=== PATIENT | female | born 1940 | race Caucasian/White ===

== ENCOUNTER → 2016-09-14 | Outpatient (CLI) | payer OTHER, MEDICARE | LOC: FIMAGING 11:46 | PROVIDERS: ATTEND Internal Medicine | DX: Z12.31 Encounter for screening mammogram for malignant neoplasm of breast (principal); Z85.3 Personal history of malignant neoplasm of breast; Z86.000 Personal history of in-situ neoplasm of breast | CPT/HCPCS: G0202 ==

== ENCOUNTER 2016-10-26 11:04 | Inpatient (IN) | payer OTHER, MEDICARE ==
[2016-10-26 12:17] LABS: % IMMATURE GRANULYOCYTES 0.3 % (0.0-1.1); ABSOLUTE IMMATURE GRANULOCYTES 0.02 10^3/uL (0.00-0.10); ADD DIFF? NO; ADD MORPH? NO; ADD SCAN? NO; ATYPICAL LYMPHOCYTE FLAG 0 (0-99); FRAGMENT RBC FLAG 0 (0-99); HEMATOCRIT 42.3 % (38.0-47.0); HEMOGLOBIN 14.4 g/dL (12.6-16.3); LEFT SHIFT FLG 0 (0-99); LIPEMIA HEMOLYSIS FLAG 90 (0-99); MEAN CELL HEMOGLOBIN 33.4 pg (27.9-34.1); MEAN CELL VOLUME 98.1 fL (81.5-99.8); MEAN PLATELET VOLUME 9.5 fL (8.7-11.7); PLATELET CLUMPS FLAG 10 (0-99); PLATELET COUNT 175 10^3/uL (150-400); RED BLOOD CELL COUNT 4.31 10^6/uL (4.18-5.33); RED CELL DISTRIBUTION WIDTH 12.7 % (11.5-15.2)
[2016-10-26] MEDS ORDERED: HYDROmorphONE/DILAUDID 1 MG/ML SYR IVP ONE ×3 (12:28→13:46)
[2016-10-26 12:33] LABS: ANION GAP 14 mEq/L (8-16); CALCIUM 9.5 mg/dL (8.5-10.4); CARBON DIOXIDE 24 mEq/l (22-31); CHLORIDE 105 mEq/L (97-110); CREATININE 0.9 mg/dL (0.6-1.0); GLOMERULAR FILTRATION RATE > 60; GLUCOSE 105 mg/dL (70-100); POTASSIUM 3.8 mEq/L (3.5-5.2); SODIUM 143 mEq/L (134-144)
[2016-10-26] MEDS ORDERED: NS 1,000 ML IV ONE (13:01)
[2016-10-26] MEDS ORDERED: IOPAMIDOL (ISOVUE-300) 100 ML BTL ONE ×2 (13:15→16:54)
[2016-10-26] MEDS ORDERED: HYDROmorphONE/DILAUDID 1 MG/ML SYR ONE (13:41)
--- NOTE | 2016-10-26 14:19 | EDPHY ---
H & P Time Seen by Provider: 10/26/16 12:51 HPI/ROS: Chief complaint. Abdominal pain HPI. 76-year-old female with abdominal pain off and on for 1 month. She had a CT checkup at the end of August for pancreatic cancer that was apparently normal other than showing constipation. She now has severe mid low abdominal pain that she describes as stabbing. Vomiting last night. Some burning with urination. No fever. She has had similar symptoms previously. Denies chest discomfort or shortness of breath. The decreased urination. ROS Constitutional. no fever/chills, no weakness Eyes. no problems with vision ENT. no sore throat, no nasal drainage Cardiovascular. no chest pain Respiratory. no shortness of breath, no cough Abdominal. Abdominal pain with vomiting . Decreased urination MS. no calf pain/swelling, no neck/back pain, no joint pain Skin. no rash Lymph. no swollen glands Neuro. no headache, no dizziness, no difficulty walking or with speech Past Medical/Surgical History: Past medical history is significant for GERD pancreatic cancer Social History: , nonsmoker, no alcohol Smoking Status: Never smoked Physical Exam: General Appearance: Alert pleasant well-developed female moderate to severe distress vital signs are stable Eyes: Pupils equal and round no pallor or injection. ENT, Mouth: Mucous membranes are moist. Respiratory: There are no retractions, lungs are clear to auscultation. Cardiovascular: Regular rate and rhythm. Gastrointestinal: Abdomen is soft with suprapubic and low abdominal tenderness. Right equals left. No flank tenderness. Normal bowel sounds. No masses. Neurological: Awake and alert, sensory and motor exams grossly normal. Skin: Warm and dry, no rashes. Musculoskeletal: Neck is supple nontender. Extremities symmetrical, full range of motion. Psychiatric: Patient is oriented X 3, there is no agitation. Constitutional: Initial Vital Signs Temperature (C) 36.7 C 10/26/16 11:10 Heart Rate 72 10/26/16 11:10 Respiratory Rate 18 10/26/16 11:10 Blood Pressure 140/69 H 10/26/16 11:10 O2 Sat (%) 97 10/26/16 11:10 O2 Delivery Mode Room Air O2 (L/minute) 2 Allergies/Adverse Reactions: No Known Allergies Allergy (Verified 10/26/16 11:18) Home Medications: Medication Instructions Recorded Levothyroxine [Synthroid 100 mcg 100 mcg PO DAILY06 01/23/12 (RX)] Acetamn/Diphenhydramine 500/25 1 each PO HS PRN 10/26/16 [Tylenol PM (*)] Herbals/Supplements -Info Only 1 ea PO DAILY 10/26/16 Lipase/Protease/Amylase [Creon 12 1 - 2 cap PO TIDMEAL 10/26/16 (*)] Medical Decision Making - Diagnostics Imaging Results: Imaging Impressions Abdomen CT 10/26/16 13:01 Impression: 1. 6.4 mm calculus in the ureterovesical junction with moderate to severe hydroureter and hydronephrosis. Visualized clip and rupture along the course of the collecting system as there is significant fluid around the ureter, ureteropelvic junction, anterior to the iliopsoas, small amount of free fluid in the pelvis, and significant perinephric stranding. 2. Postsurgical changes of Whipple with no evidence for recurrent mass or lymphadenopathy. 3. Nonobstructive right nephrolithiasis. 4. Status post cholecystectomy with pneumobilia. 5. Other chronic findings as above. Results called and discussed with Dr. Rodrigo Myers on 10/26/[address] abdomen and pelvis reviewed by me and discussed with Dr. Saini shows a 6.4 mm stone at the left UVJ. Moderate to severe hydronephrosis and perinephric stand stranding is present. Free fluid in the pelvis Procedures: IV normal saline. Multiple doses of Dilaudid are given for pain that recurs. ED Course/Re-evaluation: Re-evaluation 2:20 p.m.--patient is stable but requires further narcotics for pain control. The patient, her , and I discussed imaging study results, laboratory evaluation, treatment plan including recommendation for admission. They expressed understanding and agreed I consulted and discussed case with Dr. dyan chávez, hospitalist, who agrees to the admission I consulted and discussed case with Dr. Sanchez, urology, who will see the patient in the hospital Differential Diagnosis: I considered small-bowel obstruction, diverticulitis, urinary tract infection including pyelonephritis. The patient has left-sided kidney stone with severe hydronephrosis - Data Points Laboratory Results: Laboratory Results 10/26/16 12:10 10/26/16 12:10 10/26/16 10/26/16 10/26/16 14:02 12:10 12:10 WBC 6.77 10^3/uL 10^3/uL (3.80-9.50) RBC 4.31 10^6/uL 10^6/uL (4.18-5.33) Hgb 14.4 g/dL g/dL (12.6-16.3) Hct 42.3 % % (38.0-47.0) MCV 98.1 fL fL (81.5-99.8) MCH 33.4 pg pg (27.9-34.1) MCHC 34.0 g/dL g/dL (32.4-36.7) RDW 12.7 % % (11.5-15.2) Plt Count 175 10^3/uL 10^3/uL (150-400) MPV 9.5 fL fL (8.7-11.7) Neut % (Auto) 82.1 % H % (39.3-74.2) Lymph % (Auto) 13.4 % L % (15.0-45.0) [place] % (Auto) 3.8 % L % (4.5-13.0) Eos % (Auto) 0.0 % L % (0.6-7.6) Baso % (Auto) 0.4 % % (0.3-1.7) Nucleat RBC Rel Count 0.0 % % (0.0-0.2) Absolute Neuts (auto) 5.55 10^3/uL 10^3/uL (1.70-6.50) Absolute Lymphs (auto) 0.91 10^3/uL L 10^3/uL (1.00-3.00) Absolute Monos (auto) 0.26 10^3/uL L 10^3/uL (0.30-0.80) Absolute Eos (auto) 0.00 10^3/uL L 10^3/uL (0.03-0.40) Absolute Basos (auto) 0.03 10^3/uL 10^3/uL (0.02-0.10) Absolute Nucleated RBC 0.00 10^3/uL 10^3/uL (0-0.01) Immature Gran % 0.3 % % (0.0-1.1) Immature Gran # 0.02 10^3/uL 10^3/uL (0.00-0.10) Sodium 143 mEq/L mEq/L (134-144) Potassium 3.8 mEq/L mEq/L (3.5-5.2) Chloride 105 mEq/L mEq/L (97-110) Carbon Dioxide 24 mEq/l mEq/l (22-31) Anion Gap 14 mEq/L mEq/L (8-16) BUN 15 mg/dL mg/dL (7-23) Creatinine 0.9 mg/dL mg/dL (0.6-1.0) Estimated GFR > 60 Glucose 105 mg/dL H mg/dL (70-100) Calcium 9.5 mg/dL mg/dL (8.5-10.4) Urine Color PALE YELLOW Urine Appearance CLEAR Urine pH 7.0 (5.0-7.5) Ur Specific [place] 1.016 (1.002-1.030) Urine Protein NEGATIVE (NEGATIVE) Urine Ketones 1+ H (NEGATIVE) Urine Blood 1+ H (NEGATIVE) Urine Nitrate NEGATIVE (NEGATIVE) Urine Bilirubin NEGATIVE (NEGATIVE) Urine Urobilinogen NEGATIVE EU EU (0.2-1.0) Ur Leukocyte Esterase NEGATIVE (NEGATIVE) Urine RBC 10-15 /hpf H /hpf (0-3) Urine WBC 1-3 /hpf /hpf (0-3) Ur Epithelial Cells NONE SEEN /lpf /lpf (NONE-1+) Calcium Oxalate Crystal PRESENT /hpf /hpf (NONE-1+) Urine Mucus TRACE /lpf /lpf (NONE-1+) Urine Glucose NEGATIVE (NEGATIVE) Medications Given: Discontinued Medications Hydromorphone HCl (Dilaudid) 0.5 mg IVP EDNOW ONE Stop: 10/26/16 12:29 Last Admin: 10/26/16 12:34 Dose: 0.5 mg Hydromorphone HCl (Dilaudid) 0.25 mg IVP EDNOW ONE Stop: 10/26/16 13:02 Last Admin: 10/26/16 13:10 Dose: 0.25 mg Hydromorphone HCl (Dilaudid) 0.5 mg IVP EDNOW ONE Stop: 10/26/16 13:47 Last Admin: 10/26/16 13:47 Dose: 0.5 mg Sodium Chloride (Ns) 1,000 mls @ 0 mls/hr IV ONCE ONE; Wide Open PRN Reason: Protocol Stop: 10/26/16 13:02 Last Admin: 10/26/16 13:04 Dose: 1,000 mls Ketorolac Tromethamine (Toradol) 30 mg IVP EDNOW ONE Stop: 10/26/16 14:30 Last Admin: 10/26/16 14:51 Dose: 30 mg Departure - Departure Disposition: [facility] Acute Clinical Impression: Renal colic on left side, Ureterolithiasis Condition: Fair
[2016-10-26 14:28] LABS: COLOR PALE YELLOW; LEUKOCYTE ESTERASE,URINE NEGATIVE (NEGATIVE); NITRITE,URINE NEGATIVE (NEGATIVE)
[2016-10-26] MEDS ORDERED: KETOROLAC 30 MG/1 ML SDV IVP ONE (14:29)
[2016-10-26 14:39] LABS: MUCUS TRACE /lpf (NONE-1+)
[2016-10-26] MEDS ORDERED: ONDANSETRON DISINTEGRATING 4 MG TAB PO PRN (15:11)
[2016-10-26] MEDS ORDERED: ONDANSETRON 4 MG/2 ML VIAL IVP PRN (15:11)
[2016-10-26] MEDS ORDERED: ACETAMINOPHEN 325 MG TAB PO PRN (15:11)
[2016-10-26] MEDS ORDERED: NALOXONE HCL 0.4 MG/ML INJ IVP PRN ×2 (15:14)
[2016-10-26] MEDS ORDERED: HYDROmorphONE/DILAUDID 6 MG/30 ML PCA IV PRN (15:14)
[2016-10-26] MEDS ORDERED: NS 1,000 ML IV SCH (15:15)
--- NOTE | 2016-10-26 15:37 | GHP ---
[f rep st] HISTORY AND PHYSICAL DATE OF ADMISSION: 10/26/2016 CHIEF COMPLAINT: Abdominal flank pain. HISTORY OF PRESENT ILLNESS: This is a 76-year-old female, who presents with significant mid-lower a bdominal pain that is stabbing. She had some vomiting as well. She has had some intermittent pain for the last month. She has a history of pancreatic cancer and is status post Whipple. She denies any fevers or chills. She has not had any previous kidney stones. REVIEW OF SYSTEMS: A 10-point review of systems was obtained, other than stated above is negative. PAST MEDICAL HISTORY: 1. Pancreatic cancer, status post Whipple. 2. Hypothyroidism. 3. History of breast cancer, status post bilateral mastectomy. 4. History of cholecystectomy. SOCIAL HISTORY: No smoking or alcohol. FAMILY HISTORY: Both parents are . PHYSICAL EXAM: VITAL SIGNS: Afebrile, blood pressure is 148/72, heart rate 80, oxygen saturation 9 4% on room air. GENERAL: The patient is well-developed, no apparent distress. HEENT: Nonicteric sclerae. Moist mucous membranes. NECK: Supple. No thyromegaly. LUNGS: Good effort. Clear to a uscultation bilaterally. CARDIOVASCULAR: Regular rate and rhythm. No murmurs, gallops. ABDOMEN: Positive bowel sounds. Soft. Some mild lower tenderness. No rebound or guarding. EXTREMITIES: No clubbing, cyanosis, or edema. SKIN: Without rash or intact. NEUROLOGIC: Alert and oriented x3 . Moving all 4 extremities equally. PSYCH: Normal mood and affect. LABORATORY DATA: Chemistry is normal. CBC is normal. CT scan shows a 6.4 mm calculus in the UV ju nction, with [id number] hydroureter and hydronephrosis, and some rupture in course of the co llecting duct around UV junction, and perinephric stranding. ASSESSMENT: This is a 76-year-old female, presenting with left-sided nephrolithiasis, with obstruct zo kidney. PLAN: Patient will be admitted. We will give IV fluids. Pain control with a STRATEGIC SOURCING CONSULTANT. Urology has bee n called by the emergency room physician. /[id number]/MODL
[2016-10-26] MEDS ORDERED: FLUMAZENIL 0.5 MG/5 ML MDV IVP ONE (17:05)
[2016-10-26] MEDS ORDERED: KETOROLAC 30 MG/1 ML SDV ONE (17:05)
[2016-10-26] MEDS ORDERED: fentaNYL 100 MCG/2 ML INJ ONE (17:05)
[2016-10-26] MEDS ORDERED: MIDAZOLAM 2 MG/2 ML VIAL ONE (17:06)
--- NOTE | 2016-10-26 17:55 | SOAPPROG ---
ANJALI Progress Note Assessment/Plan: Assessment: Hydronephrosis concurrent with and due to ureteral stricture--left Acute on CAT scan and plan for PCN Right nephrolithiasis Acute on CAT and will need rx later Ureterolithiasis Acute on CAT scan and rx after PCN placed and ureter / kidney inflammation resolved Plan: Left PCN, follow and care planning after kidney drained 10/26/16 17:53 Subjective: abdominal pain Objective: Vital Signs Temp Pulse Resp BP Pulse Ox 36.8 C 82 18 112/65 94 10/26/16 15:45 10/26/16 15:45 10/26/16 15:45 10/26/16 15:45 10/26/16 15:45 10/25/16 10/26/16 10/27/16 05:59 05:59 05:59 Intake Total 1000 Balance 1000 Physical Exam - Physical Exam General Appearance: alert (reviewed CAT scan and addressed admitting problem. will follow in hospital and consider a rx plan for ureterolithiasis and nephrolithiasis) ICD10 Worksheet Patient Problems: Problems Problem Status Onset Hydronephrosis concurrent with and due to ureteral stricture Acute Right nephrolithiasis Acute Ureterolithiasis Acute - ICD10 Problem Qualifiers (1) Hydronephrosis concurrent with and due to ureteral stricture (2) Right nephrolithiasis (3) Ureterolithiasis
--- NOTE | 2016-10-26 18:09 | POSTOPPROG ---
Post Op Note Date of Operation: 10/26/16 Surgeon: Charan Crooks Anesthesia: IV Sedation Pre-op Diagnosis: Left ureteral stone Post-op Diagnosis: Same Indication: Left ureteral obstruction with extravasation Procedure: Percutaneous left nephrostomy Findings: Tube in good position Inf/Abcess present in the surg proc area at time of surgery?: No EBL: Minimal Drains: Nephrostomy (10 F pigtail)
[2016-10-26] MEDS: CREON 12 CAP PO SCH (20:28)
[2016-10-27] MEDS: LEVOTHYROXINE 100 MCG TAB PO SCH (04:03)
[2016-10-27 05:31] LABS: % IMMATURE GRANULYOCYTES 0.2 % (0.0-1.1); ABSOLUTE IMMATURE GRANULOCYTES 0.01 10^3/uL (0.00-0.10); ADD DIFF? NO; ADD MORPH? NO; ADD SCAN? NO; ATYPICAL LYMPHOCYTE FLAG 10 (0-99); FRAGMENT RBC FLAG 0 (0-99); HEMATOCRIT 35.2 % (38.0-47.0); HEMOGLOBIN 11.8 g/dL (12.6-16.3); LEFT SHIFT FLG 0 (0-99); LIPEMIA HEMOLYSIS FLAG 80 (0-99); MEAN CELL HEMOGLOBIN 33.1 pg (27.9-34.1); MEAN CELL HEMOGLOBIN CONCENTR. 33.5 g/dL (32.4-36.7); MEAN CELL VOLUME 98.6 fL (81.5-99.8); PLATELET CLUMPS FLAG 0 (0-99); PLATELET COUNT 137 10^3/uL (150-400); RED BLOOD CELL COUNT 3.57 10^6/uL (4.18-5.33); RED CELL DISTRIBUTION WIDTH 12.7 % (11.5-15.2)
[2016-10-27 06:01] LABS: ANION GAP 9 mEq/L (8-16); CALCIUM 8.7 mg/dL (8.5-10.4); CARBON DIOXIDE 22 mEq/l (22-31); CHLORIDE 110 mEq/L (97-110); CREATININE 0.6 mg/dL (0.6-1.0); GLOMERULAR FILTRATION RATE > 60; GLUCOSE 92 mg/dL (70-100); POTASSIUM 3.7 mEq/L (3.5-5.2); SODIUM 141 mEq/L (134-144)
[2016-10-27] MEDS: CREON 12 CAP PO SCH ×3 (08:11→17:17)
--- NOTE | 2016-10-27 10:01 | HOSPPROG ---
Hospitalist Progress Note Assessment/Plan: * nephrolithiasis with obstruction and ureteral stricture * Nephrostomy tube in place * Treatment per Urology * history of pancreatic cancer Subjective: Not much pain Objective: Vital Signs Temp Pulse Resp BP Pulse Ox 36.9 C 62 16 99/60 L 95 10/27/16 09:32 10/27/16 09:32 10/27/16 09:32 10/27/16 09:32 10/27/16 09:32 Microbiology 10/26/16 18:00 Gram Stain - Final Other - Syringe Laboratory Results 10/27/16 04:22 10/27/16 04:22 10/26/16 10/27/16 10/28/16 05:59 05:59 05:59 Intake Total 2843 Output Total 200 Balance 2643 - Physical Exam Constitutional: no apparent distress, appears nourished, not in pain Eyes: anicteric sclera, EOMI Ears, Nose, Mouth, Throat: moist mucous membranes, hearing normal Cardiovascular: regular rate and rhythym Respiratory: no respiratory distress, no rales or rhonchi, clear to auscultation Gastrointestinal: normoactive bowel sounds, soft, non-tender abdomen, no palpable masses Genitourinary: obrien in urethra, other (Left nephrostomy) Skin: warm Neurologic: AAOx3 Psychiatric: interacting appropriately, not anxious, not encephalopathic, thought process linear ICD10 Worksheet Patient Problems: Problems Problem Status Onset Hydronephrosis concurrent with and due to ureteral stricture Acute Renal colic on left side Acute Right nephrolithiasis Acute Ureterolithiasis Acute
--- NOTE | 2016-10-27 17:31 | SOAPPROG ---
SOAP Progress Note Assessment/Plan: Assessment: Hydronephrosis concurrent with and due to ureteral stricture--left Acute on CAT scan and PCN placed HD 1 and tolerated well Right nephrolithiasis Acute on CAT and will need rx later Ureterolithiasis Acute on CAT scan and ureteroscopy planned Plan: Left PCN, Plan ureteroscopy in AM (Saturday) 10/27/16 18:06 Subjective: no pain and desires rx of stone, did not know about right nephrolithiasis Objective: Vital Signs Temp Pulse Resp BP Pulse Ox 36.3 C 74 16 116/81 H 95 10/27/16 15:26 10/27/16 15:26 10/27/16 15:26 10/27/16 15:26 10/27/16 15:26 Microbiology 10/26/16 18:00 Gram Stain - Final Other - Syringe Laboratory Results 10/27/16 04:22 10/27/16 04:22 10/26/16 10/27/16 10/28/16 05:59 05:59 05:59 Intake Total 2843 Output Total 200 200 Balance 2643 -200 - Time Spent With Patient Time Spent With Patient: 60min Physical Exam - Physical Exam General Appearance: alert Respiratory: No respiratory distress Cardiac/Chest: regular rate, rhythm Abdomen: soft Back: Other (neph tube draining well), No CVA tenderness Skin: warm/dry Extremities: normal range of motion, No calf tenderness Neuro/Psych: alert, oriented x 3 ICD10 Worksheet Patient Problems: Problems Problem Status Onset Hydronephrosis concurrent with and due to ureteral stricture Acute Renal colic on left side Acute Right nephrolithiasis Acute Ureterolithiasis Acute - ICD10 Problem Qualifiers (1) Hydronephrosis concurrent with and due to ureteral stricture (2) Right nephrolithiasis (3) Ureterolithiasis
--- NOTE | 2016-10-27 18:08 | PDHPUP ---
History & Physical Update H&P update statement: This history and physical update is based on an assessment of the patient which was completed after admission or registration (within 24 hours), but prior to the surgery/procedure. H&P update: H&P reviewed & patient examined, no change in patient's condition since H&P completed
[2016-10-27] MEDS ORDERED: CALCIUM CARBONATE 500 MG CHEWABLE TAB PO PRN (22:39)
[2016-10-27] MEDS ORDERED: ZOLPIDEM TARTRATE 5 MG TAB PO ONE (22:54)
[2016-10-28] MEDS: LEVOTHYROXINE 100 MCG TAB PO SCH (05:12)
[2016-10-28] MEDS ORDERED: ceFAZolin 2 GM/DEXTROSE 100 ML IV ONE (07:00)
[2016-10-28] MEDS ORDERED: IOPAMIDOL (ISOVUE-M 300) 15 ML VIAL ONE (07:31)
[2016-10-28] MEDS ORDERED: LIDOCAINE 2% JELLY 20 ML (UROJECT) ONE (07:31)
[2016-10-28] MEDS: CREON 12 CAP PO SCH ×2 (07:39→12:41)
[2016-10-28] MEDS ORDERED: LR 1,000 ML IV ONE (07:47)
[2016-10-28] MEDS ORDERED: MIDAZOLAM 2 MG/2 ML VIAL IVP ONE (08:06)
--- NOTE | 2016-10-28 08:08 | PDANEPAE ---
ANE Past Medical History - Cardiovascular History Hx Hypertension: No Hx Arrhythmias: No Hx Chest Pain: No Hx Coronary Artery / Peripheral Vascular Disease: No Hx CHF / Valvular Disease: No Hx Palpitations: No Cardiovascular History Comment: HAS HAD WORKUPS IN PAST FOR CHEST PAIN - NONE RECENT - Pulmonary History Hx COPD: No Hx Asthma/Reactive Airway Disease: No Hx Recent Upper Respiratory Infection: No Hx Oxygen in Use at Home: No Hx Sleep Apnea: No Sleep Apnea Screening Result - Last Documented: Negative - Neurologic History Hx Cerebrovascular Accident: No Hx Seizures: No Hx Dementia: No - Endocrine History Hx Diabetes: Yes Endocrine History Comment: HYPOTHYROID - HASHIMOTOS - Renal History Hx Renal Disorders: No - Liver History Hx Hepatic Disorders: Yes Hepatic History Comment: CHOLECYSTECTOMY - Neurological & Psychiatric Hx Hx Neurological and Psychiatric Disorders: No - Cancer History Hx Cancer: Yes Cancer History Comment: BREAST CA NADINE. SKIN CA - Congenital Disorder History Hx Congenital Disorders: No - GI History Hx Gastrointestinal Disorders: Yes Gastrointestinal History Comment: GERD. ABD PAIN CURRENTLY - Other Health History Other Health History: NEG - Chronic Pain History Chronic Pain: No - Surgical History Prior Surgeries: CHOLECYSTECTOMY. LUMPECTOMY NADINE. INCOMP CERVIX ANE Patient History - Allergies Allergies/Adverse Reactions: No Known Allergies Allergy (Verified 10/26/16 11:18) - Home Medications Home Medications: Levothyroxine [Synthroid 100 mcg (RX)] 100 mcg PO DAILY06 01/23/12 [Last Taken 10/25/16] Acetamn/Diphenhydramine 500/25 [Tylenol PM (*)] 1 each PO HS PRN 10/26/16 [Last Taken Unknown] Herbals/Supplements -Info Only 1 ea PO DAILY 10/26/16 [Last Taken Unknown] Lipase/Protease/Amylase [Creon 12 (*)] 1 - 2 cap PO TIDMEAL 10/26/16 [Last Taken 10/25/16] - NPO status NPO Since - Liquids (Date): 10/28/16 NPO Since - Liquids (Time): 00:00 NPO Since - Solids (Date): 10/28/16 NPO Since - Solids (Time): 00:00 - Smoking Hx Smoking Status: Never smoked - Family Anes Hx Family Hx Anesthesia Complications: NEG ANE Labs/Vital Signs - Labs Result Diagrams: 10/27/16 04:22 10/27/16 04:22 - Vital Signs Blood Pressure: 126/67 Heart Rate: 77 Respiratory Rate: 18 O2 Sat (%): 94 Height: 161.29 cm Weight: 52.526 kg ANE Physical Exam - Airway Neck exam: FROM Mouth exam: normal dental/mouth exam - Pulmonary Pulmonary: no respiratory distress, no rales or rhonchi, clear to auscultation - Cardiovascular Cardiovascular: regular rate and rhythym - ASA Status ASA Status: III ANE Anesthesia Plan Anesthesia Plan: GA w LMA
[2016-10-28] MEDS ORDERED: MIDAZOLAM 2 MG/2 ML VIAL ONE (08:11)
[2016-10-28] MEDS ORDERED: fentaNYL 100 MCG/2 ML INJ ONE ×2 (08:12→09:25)
[2016-10-28] MEDS ORDERED: DEXAMETHASONE 4 MG/ML VIAL ONE (08:13)
[2016-10-28] MEDS ORDERED: ONDANSETRON 4 MG/2 ML VIAL ONE ×2 (08:13→09:32)
[2016-10-28] MEDS ORDERED: LIDOCAINE 2% 5 ML SDV ONE (08:13)
[2016-10-28] MEDS ORDERED: PROPOFOL 200 MG/20 ML VIAL ONE (08:13)
[2016-10-28] MEDS ORDERED: LIDOCAINE 2% JELLY 5 ML TUBE ONE (08:13)
[2016-10-28] MEDS ORDERED: PHENYLEPHRINE HCL 100 MCG/ML SYR ONE ×2 (08:27→08:54)
--- NOTE | 2016-10-28 08:29 | HOSPPROG ---
Hospitalist Progress Note Assessment/Plan: #Nephrolithiasis with obstruction and ureteral stricture: s/p nephrostomy tube -ureteroscopy today #h/o pancreatic cancer: stable Objective: Vital Signs Temp Pulse Resp BP Pulse Ox 36.9 C 77 18 126/67 H 94 10/28/16 07:24 10/28/16 08:08 10/28/16 08:08 10/28/16 08:08 10/28/16 08:08 Microbiology 10/26/16 18:00 Gram Stain - Final Other - Syringe Laboratory Results 10/27/16 04:22 10/27/16 04:22 10/27/16 10/28/16 10/29/16 05:59 05:59 05:59 Intake Total 2843 1015 Output Total 200 1425 Balance 2643 -410 ICD10 Worksheet Patient Problems: Problems Problem Status Onset Hydronephrosis concurrent with and due to ureteral stricture Acute Renal colic on left side Acute Right nephrolithiasis Acute Ureterolithiasis Acute
[2016-10-28] MEDS ORDERED: LABETALOL HCL 50 MG/10 ML SYR IVP PRN (09:06)
[2016-10-28] MEDS ORDERED: NALOXONE HCL 0.4 MG/ML INJ IVP PRN (09:06)
[2016-10-28] MEDS ORDERED: LR 500 ML IV PRN (09:06)
[2016-10-28] MEDS ORDERED: DEXAMETHASONE 4 MG/ML VIAL IVP PRN (09:06)
[2016-10-28] MEDS ORDERED: ONDANSETRON 4 MG/2 ML VIAL IVP PRN (09:06)
[2016-10-28] MEDS ORDERED: PROMETHAZINE HCL 25 MG/ML INJ IVP PRN (09:06)
--- NOTE | 2016-10-28 09:18 | POSTANESTH ---
Post Anesthetic Evaluation Cardiovascular Status: Normal, Stable, Similar to Pre-Op Cond Respiratory Status: Normal, Stable, Similar to Pre-op Cond. Level of Consciousness/Mental Status: Can Participate in Eval, Alert and Oriented Pain Control: Adequate, Prn Tx Ordered Nausea/Vomiting Control: Adequate, Prn Tx Ordered Complications Possibly Related to Anesthesia: None Noted
--- NOTE | 2016-10-28 09:24 | POSTOPPROG ---
Post Op Note Date of Operation: 10/28/16 Surgeon: Maciel Sanchez Anesthesiologist: Nicky Anesthesia: LMA Pre-op Diagnosis: left stone Post-op Diagnosis: same Indication: same Procedure: ureteroscopy, stone removal, nephrostomy tube removal Findings: stone Inf/Abcess present in the surg proc area at time of surgery?: No EBL: Minimal Complications: none--dictated op note Drains: Other (left ureteral stent--post op information provided to )
--- NOTE | 2016-10-28 09:27 | GCON ---
[f rep st] CONSULTATION DATE OF CONSULTATION: 10/26/2016 This is a 76-year-old lady who presented night in the emergency room because of severe left flank pain. The CT scan revealed she had a distal ureteral stone with high-grade obstruction and e xtravasation of urine around the kidney. Review of the films and coordination of care, we had recom mended that she have a nephrostomy tube placed, which was done in Interventional Radiology and after the placement the tube, her pain immediately subsided and she felt much better. She never spiked a white count. She had a culture; that fluid showed no bacteria. This is her first kidney stone. S he has had no previous stones noted and at the present time, she was admitted for hydration, pain co ntrol, drainage of the kidney and consideration of therapy and treatment. The initial interaction w as on Saturday and then on Saturday, I had visited with the patient and her . I spent 60 minut es with the visit going over her films and options of therapy and the fact she also had right nephro lithiasis in addition to the left ureterolithiasis with hydronephrosis. The most prevalent thing is to treat the left ureteral stone first and then after that, then addressed the right lower pole lar ge stone. I tried to answer all of her questions to the best of my ability in that discussion. PHYSICAL EXAMINATION: GENERAL: She was alert and oriented. She had no abdominal pain at the time of visit. The left nephrostomy tube was draining well with a bit of blood-tinged urine. She had a catheter placed previously, but now she is voiding spontaneously. HEAD, EYES, EARS, NOSE, THROAT: Normal. CHEST: Clear with no respiratory labored breathing. HEART: Regular rate and rhythm. ABD OMEN: Soft. LOWER EXTREMITIES: No edema. NEUROLOGIC: She was oriented x3 and had normal affect and neurologically appeared to be intact. PAST HISTORY: She has had pancreatic cancer treated with curative therapy and a Whipple procedure w ith postoperative treatments and at the present time, she has no evidence disease. She does have so me reflux and seems to have significant bowel movements, but has no other problems. She does take a pancreatic supplement and calcium with citrate and vitamin D, but otherwise no other issues. At th at visit, we did discuss the options of therapy and she has requested that she undergo a treatment a nd then try to remove the stone so increased her progression because she has a grandchild to be born in the future that she is to go visit and be helpful at that post-delivery time. On Saturday morning , she had not passed the stone. She was in the recovery room. Discussed with her in detail and her , gave them postoperative information and she agreed to undergo the procedure and written an d verbal consent was obtained. /[id number]/MODL
[2016-10-28] MEDS: fentaNYL 100 MCG/2 ML INJ IVP PRN ×2 (09:29→09:56)
--- NOTE | 2016-10-28 09:41 | GOP ---
[f rep st] OPERATIVE REPORT DATE OF OPERATION: 10/28/2016 SURGEON: Maciel Sanchez MD PREOPERATIVE DIAGNOSIS: Left ureteral calculus with obstruction hydronephrosis. POSTOPERATIVE DIAGNOSIS: Left ureteral calculus with obstruction hydronephrosis. PROCEDURE PERFORMED: Cystoscopy, retrograde ureteropyelogram, dilation of ureter, ureteroscopy with laser lithotripsy of the distal stone and placement of ureteral stent. FINDINGS: DESCRIPTION OF PROCEDURE: The lady underwent general anesthesia, was prepped and draped in normal s terile fashion in dorsal lithotomy position. Urethra normal. Bladder had no tumor, stones, foreign bodies, or diverticula. 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 The left ureteral orifice was quite edematous, but it was cannulated then I could eventual ly negotiate the [place] catheter beyond the stone. The stone was not radiolucent and then passed p art of the ureteral access sheath that was passed up beyond the site of the stone. Then at that poi nt, the semi-rigid scope was to go up and the stone was fragmented with the laser lithotripsy, setti ngs and knight documented in the chart. At the end of the procedure, I extracted some of the stone fragments out with a basket and then visualized up to the renal pelvis and then was able to pass the guidewire up and then with a wire in the renal pelvis, I under fluoroscopy had straightened out the catheter and removed the nephrostomy tube, which will be dictated in a 2nd report and then I placed the 6-Polish multi-length stent that curled in the renal pelvis and curled in the bladder. The mo dder then cleared and a Uro-Jet was placed in the urethra in the bladder and exam under anesthesia r evealed no pelvic masses. The cervix was atrophic. She will be sent to recovery room and I will di scuss the findings with her . Plan for her to be discharged home and then to have us remove her stent in approximately a week. en at that point, we would address the right nephrolithiasis. /[id number]/MODL
--- NOTE | 2016-10-28 09:46 | GOP ---
[f rep st] OPERATIVE REPORT SURGEON: Maciel Sanchez MD PREOPERATIVE DIAGNOSIS: Left nephrostomy tube. POSTOPERATIVE DIAGNOSIS: Left nephrostomy tube. DESCRIPTION OF PROCEDURE: After the patient had been prepped and draped in the normal sterile fashion for the cystoscopic procedure, and then under fluoroscopy , passed a wire in to make sure that stent catheter was straight. Under fluoroscopic, removed it. The site had a stitch that had been cut, and a sterile Band-Aid was placed over the site. Then proceeded by completing the endoscopic procedure. PROCEDURE: Fluoroscopic removal of left nephrostomy tube. /[id number]/MODL MTDD
[2016-10-28] MEDS ORDERED: KETOROLAC 15 MG/1 ML SDV IVP ONE (12:31)
[2016-10-28] MEDS ORDERED: SENNOSIDES 17.6 MG/10 ML UDL PO SCH (12:45)
[2016-10-28 13:04] VITALS: RESP 16
--- NOTE | 2016-10-28 13:33 | HOSPPROG ---
Hospitalist Progress Note Assessment/Plan: #Nephrolithiasis with obstruction and ureteral stricture: s/p nephrostomy tube -s/p ureteral stent today #Acute abd pain: due to above. Trial toradol #Constipation: Senna #h/o pancreatic cancer: stable #Disp: okay to [facility]. ANGEL Sanchez Subjective: mild left flank pain after stenting today Objective: Vital Signs Temp Pulse Resp BP Pulse Ox 36.6 C 70 16 119/79 95 10/28/16 12:34 10/28/16 12:34 10/28/16 12:34 10/28/16 12:34 10/28/16 12:34 Microbiology 10/26/16 18:00 Gram Stain - Final Other - Syringe Laboratory Results 10/27/16 04:22 10/27/16 04:22 10/27/16 10/28/16 10/29/16 05:59 05:59 05:59 Intake Total 2843 1015 450 Output Total 200 1425 0 Balance 2643 -410 450 - Physical Exam Constitutional: no apparent distress, other (tired-appearing) Eyes: PERRL Ears, Nose, Mouth, Throat: moist mucous membranes Cardiovascular: regular rate and rhythym, no murmur, rub, or gallop Respiratory: no respiratory distress, no rales or rhonchi Gastrointestinal: normoactive bowel sounds, soft, non-tender abdomen, other Genitourinary: other (mild left flank pain) Skin: warm Musculoskeletal: full muscle strength Neurologic: AAOx3, CN II-XII Intact Psychiatric: interacting appropriately ICD10 Worksheet Patient Problems: Problems Problem Status Onset Hydronephrosis concurrent with and due to ureteral stricture Acute Renal colic on left side Acute Right nephrolithiasis Acute Ureterolithiasis Acute
[2016-10-28 13:34] VITALS: BP 111/77; PULSE 72; TEMP 98.2; O2SAT 93
--- NOTE | 2016-10-28 14:46 | GDS ---
[f rep st] DISCHARGE SUMMARY DISCHARGE DIAGNOSES: 1. Nephrolithiasis with obstruction. 2. Status post nephrostomy tube. 3. Ureteral stricture, status post ureteral stents. 4. Acute abdominal pain. 5. Constipation. 6. History of pancreatic cancer. CONSULTATIONS: Dr. Sanchez with Urology. PROCEDURES: 1. Percutaneous left nephrostomy tube 10/26/2016. 2. Left nephrostomy tube removal 3. 10/28/2016 ureteroscopy, stone removal, nephrostomy tube removal. HISTORY OF PRESENT ILLNESS: The patient is a 76-year-old female with history of breast cancer, pancreatic cancer, and hypothyroidism, presented with mid lower abdominal pain, stabbing in nature. She had some emesis as well. Pain has been intermittent for the last month. She denies any fevers, chills, or sweats. No dysuria. HOSPITAL COURSE BY PROBLEM: 1. Left nephrolithiasis at [facility] with moderate to severe hydronephrosis: underwent percutaneous nephrostomy by IR. Had ureteroscopy with stent placement and tube removal per Dr. Sanchez. She is to follow up with him as an outpatient. 2. Acute abdominal pain: Secondary to kidney stone. We will trial Toradol. If this is effective, she may take Advil as needed. 3. History of pancreatic cancer, status post Whipple. 4. Hypothyroidism. Continue levothyroxine. 5. History of breast cancer, stable. DISPOSITION: Patient stable for discharge. FOLLOWUP: Dr. Sanchez. /[id number]/MODL MTDD
== END 2016-10-28 15:30 | disposition home or self-care (01) | DRG 694 ==
LOC: F3E 15:16
PROVIDERS: ADMIT Internal Medicine; ATTEND Internal Medicine
PROC: 0T9130Z Drainage of Left Kidney with Drainage Device, Percutaneous Approach (ICD-10-PCS; 2016-10-26)
PROC: 0TF78ZZ Fragmentation in Left Ureter, Via Natural or Artificial Opening Endoscopic (ICD-10-PCS; principal; 2016-10-28 08:00)
PROC: 0T778DZ Dilation of Left Ureter with Intraluminal Device, Via Natural or Artificial Opening Endoscopic (ICD-10-PCS; principal; 2016-10-28 08:00)
PROC: 0TP5X0Z Removal of Drainage Device from Kidney, External Approach (ICD-10-PCS; principal; 2016-10-28 08:00)
DX: N13.2 Hydronephrosis with renal and ureteral calculous obstruction (principal); N13.1 Hydronephrosis with ureteral stricture, not elsewhere classified; N20.0 Calculus of kidney; K59.00 Constipation, unspecified; E03.9 Hypothyroidism, unspecified; Z85.3 Personal history of malignant neoplasm of breast; Z85.07 Personal history of malignant neoplasm of pancreas
CPT/HCPCS: 82365-90; 96374; C1729; C1758; C1769; C1894; C2625; J0690; J1100; J1170; J1644; J1885; J2250; J2310; J2370; J2405; J2704; J3010; Q9967

== ENCOUNTER 2017-09-16 16:40 | Emergency (ER) | payer OTHER, MEDICARE ==
--- NOTE | 2017-09-16 18:58 | EDPHY ---
H & P Time Seen by Provider: 09/16/17 18:14 HPI/ROS: CHIEF COMPLAINT: Constipation HISTORY OF PRESENT ILLNESS: This 77-year-old woman has a history of pancreatic cancer with a Whipple in 2014. She is on her 5th week of 6 weeks of chemotherapy for recurrent pancreatic cancer and she has noted that when she takes this chemotherapy she gets constipated and when she stops she gets better. She has had a feeling of rectal fullness for the last 3 days and constipation with no bowel movement with no relief with milk a magnesia and enema and MiraLax and prune juice. She says symptoms are moderate, not better or worse with anything. She is able to drink water today without change in her symptoms. No fevers or chills. A little bit of nausea but no vomiting. She does not feel distended. REVIEW OF SYSTEMS: Eye: no change in vision ENT: Sore throat some mild dysphagia after radiation which is also been present for at least the last 6-8 months. Cardiac: She has had chest pain after her radiation for about the last 6-8 months which is worse lying down and that is unchanged Pulmonary: Not short of breath, has a chronic mild dry nonproductive cough. Abdomen: HPI Musculoskeletal: no back pain Skin: no rash Neuro: no headache Constitutional: no fever : She says her urine is a bit"slower"but no dysuria or hematuria or urinary frequency A comprehensive 10 point review of systems is otherwise negative aside from elements mentioned in the history of present illness. PAST MEDICAL HISTORY: Includes breast cancer, pancreatic cancer with Whipple, cholecystectomy, thyroid Social history: General Appearance: Alert and conversant, cooperative. Eyes: No scleral icterus. ENT, Mouth: Normal mucous membranes. Respiratory: Normal respiratory effort, breath sounds equal, lungs are clear to auscultation. Cardiovascular: Regular rate and rhythm. Gastrointestinal: Abdomen is soft and non tender. Bowel sounds present, no rebound or guarding, not distended. Rectal exam shows a lot of firm stool in the vault which was partially manually disimpacted by myself. Neurological: Alert, face symmetric, normal motor and sensory in extremities. Skin: Warm and dry, no rashes. Musculoskeletal: No peripheral edema. Psychiatric: Not agitated. Emergency Department course/MDM: Patient presents with symptoms which she thinks is constipation and I think it is reasonable given her large amount of stool in the vault on exam, to 1st try to relieve her constipation and if we can her symptoms go away that it is reasonable to be discharged. Patient given enema by RN. 1953: Patient standing next to the commode, smiling and says she feels a lot better after having a very large bowel movement. Smoking Status: Never smoked Constitutional: Initial Vital Signs Temperature (C) 36.7 C 09/16/17 17:22 Heart Rate 96 09/16/17 17:22 Respiratory Rate 16 09/16/17 17:22 Blood Pressure 122/72 H 09/16/17 17:22 O2 Sat (%) 95 09/16/17 17:22 O2 Delivery Mode Room Air Allergies/Adverse Reactions: No Known Allergies Allergy (Verified 09/16/17 17:21) Home Medications: Medication Instructions Recorded Levothyroxine [Synthroid 100 mcg 100 mcg PO DAILY06 01/23/12 (*)] Acetamn/Diphenhydramine 500/25 1 each PO HS PRN 10/26/16 [Tylenol PM (*)] Herbals/Supplements -Info Only 1 ea PO DAILY 10/26/16 Lipase 12,000/Amylase/Protease 1 - 2 cap PO TIDMEAL 10/26/16 [Creon 12 (*)] Ibuprofen [Advil] 600 mg PO Q8H #30 tablet 10/28/16 Capecitabine 09/16/17 Valacyclovir HCl 09/16/17 Medical Decision Making Differential Diagnosis: Differential considered including but not limited to intestinal perforation, bowel obstruction, constipation, volvulus. Departure - Departure Disposition: Home, Routine, Self-Care Clinical Impression: Constipation Qualifiers: Constipation type: unspecified constipation type Qualified Code(s): K59.00 - Constipation, unspecified Condition: Good Instructions: Constipation (ED) Referrals: Payton Fairbanks MD [Primary Care Provider] - As per Instructions
[2017-09-16 20:32] VITALS: BP 125/78
== END 2017-09-16 20:34 | disposition home or self-care (01) ==
DX: K59.00 Constipation, unspecified (principal); Z85.07 Personal history of malignant neoplasm of pancreas; Z85.3 Personal history of malignant neoplasm of breast

== ENCOUNTER → 2017-10-11 | Outpatient (CLI) | payer OTHER, MEDICARE | LOC: FIMAGING 13:34 | PROVIDERS: ATTEND Radiology Radiation Oncology | DX: Z12.31 Encounter for screening mammogram for malignant neoplasm of breast (principal); Z85.3 Personal history of malignant neoplasm of breast ==

== ENCOUNTER 2018-03-21 07:53 | Day surgery (SDC) | payer OTHER, MEDICARE ==
--- NOTE | 2018-03-21 07:47 | PDANEPAE ---
ANE History of Present Illness vascular access port ANE Past Medical History - Cardiovascular History Hx Hypertension: No Hx Arrhythmias: No Hx Chest Pain: No Hx Coronary Artery / Peripheral Vascular Disease: No Hx CHF / Valvular Disease: No Hx Palpitations: No Cardiovascular History Comment: HAS HAD WORKUPS IN PAST FOR CHEST PAIN - NONE RECENT - Pulmonary History Hx COPD: No Hx Asthma/Reactive Airway Disease: No Hx Recent Upper Respiratory Infection: No Hx Oxygen in Use at Home: No Hx Sleep Apnea: No Sleep Apnea Screening Result - Last Documented: Negative Pulmonary History Comment: LUNGS METS - Neurologic History Hx Cerebrovascular Accident: No Hx Seizures: No Hx Dementia: No - Endocrine History Hx Diabetes: Yes Hypothyroid: Yes Hyperthyroid: No Obesity: no Endocrine History Comment: HYPOTHYROID - HASHIMOTOS - Renal History Hx Renal Disorders: No - Liver History Hx Hepatic Disorders: Yes Hepatic History Comment: CHOLECYSTECTOMY - Neurological & Psychiatric Hx Hx Neurological and Psychiatric Disorders: No - Cancer History Hx Cancer: Yes Cancer History Comment: BREAST CA. SKIN. PANCREATIC. LUNG - Congenital Disorder History Hx Congenital Disorders: No - GI History GERD: mild Hx Gastrointestinal Disorders: Yes Gastrointestinal History Comment: INTERMITTENT GERD. CONSTIPATION - Other Health History Other Health History: VITILIGO. CONGENITAL DEAFNESS. MINOR NEUROPATHY - Chronic Pain History Chronic Pain: Yes (CHEST DOWN TO ABD, uses CBD oil) - Surgical History Prior Surgeries: LASER REMVL LT KIDNEY STONE 10/2016. CHOLECYSTECTOMY. LUMPECTOMY NADINE. INCOMP CERVIX. WHIPPLE 10/2014. ENDOCRINE TUMOR 2015 ANE Review of Systems Review of Systems: - Exercise capacity METS (RN): 4 METS ANE Patient History - Allergies Allergies/Adverse Reactions: No Known Allergies Allergy (Verified 09/16/17 17:21) - Home Medications Home Medications: Levothyroxine [Synthroid 100 mcg (*)] 100 mcg PO DAILY06 01/23/12 [Last Taken ] Acetamn/Diphenhydramine 500/25 [Tylenol PM (*)] 1 each PO HS PRN 10/26/16 [Last Taken Unknown] Herbals/Supplements -Info Only 1 ea PO DAILY 10/26/16 [Last Taken Unknown] Valacyclovir HCl PO PRN 09/16/17 [Last Taken Unknown] Amitriptyline HCl HS 03/18/18 [Last Taken Unknown] Baclofen PRN 03/18/18 [Last Taken Unknown] Creon 24 (*) TID 03/18/18 [Last Taken Unknown] Liothyronine Sodium DAILY 03/18/18 [Last Taken Unknown] Miralax 17 gm (*) DAILY 03/18/18 [Last Taken Unknown] Ondansetron PRN 03/18/18 [Last Taken Unknown] Tramadol HCl BID 03/18/18 [Last Taken Unknown] - Anes Hx Anes Hx: no prior problems - Smoking Hx Smoking Status: Never smoked Marijuana use: No - Alcohol Use Alcohol Use: None - Family Anes Hx Family Anes Hx: none Family Hx Anesthesia Complications: NEG ANE Labs/Vital Signs - Vital Signs Height: 160.02 cm Weight: 49.895 kg ANE Physical Exam - Airway Neck exam: FROM Mallampati Score: Class 1 Mouth exam: normal dental/mouth exam - Pulmonary Pulmonary: clear to auscultation - Cardiovascular Cardiovascular: regular rate and rhythym - ASA Status ASA Status: II ANE Anesthesia Plan Anesthesia Plan: GA w LMA
[2018-03-21] MEDS ORDERED: BUPIVACAINE 0.5% 30 ML SDV ONE (08:10)
[2018-03-21] MEDS ORDERED: PROPOFOL 200 MG/20 ML VIAL ONE (08:31)
[2018-03-21] MEDS ORDERED: DEXAMETHASONE 4 MG/ML VIAL ONE (08:31)
[2018-03-21] MEDS ORDERED: LIDOCAINE 1% 2 ML INJ ID PRN (08:41)
[2018-03-21] MEDS ORDERED: LR 1,000 ML IV ONE (08:41)
[2018-03-21] MEDS ORDERED: LIDOCAINE 1% 2 ML INJ ONE (08:41)
[2018-03-21] MEDS ORDERED: ceFAZolin 2 GM/DEXTROSE 100 ML IV ONE (08:41)
[2018-03-21] MEDS ORDERED: PHENYLEPHRINE HCL 100 MCG/ML SYR ONE (09:18)
[2018-03-21] MEDS ORDERED: ONDANSETRON 4 MG/2 ML VIAL ONE (09:34)
[2018-03-21] MEDS ORDERED: HYDROCODONE/APAP 5/325 TAB PO PRN (09:41)
[2018-03-21] MEDS ORDERED: ONDANSETRON 4 MG/2 ML VIAL IVP PRN (09:41)
[2018-03-21] MEDS ORDERED: NALOXONE HCL 0.4 MG/ML INJ IVP PRN (09:41)
[2018-03-21] MEDS ORDERED: fentaNYL 100 MCG/2 ML INJ IVP PRN (09:41)
[2018-03-21] MEDS ORDERED: BACITRACIN ZINC 14.2 GM OINTTUBE TP ONE (09:44)
--- NOTE | 2018-03-21 09:56 | POSTOPPROG ---
Post Op Note Date of Operation: 03/21/18 Surgeon: Charan Khalil Anesthesiologist: mik Anesthesia: GET(General Endotracheal) Pre-op Diagnosis: pancreatic cancer Post-op Diagnosis: same Indication: chemo access Procedure: left subclavian port Findings: good flow and position Inf/Abcess present in the surg proc area at time of surgery?: No Depth: Deep Incisional (Fascial) EBL: Minimal Complications: 0
--- NOTE | 2018-03-21 10:03 | POSTANESTH ---
Post Anesthetic Evaluation Cardiovascular Status: Normal, Stable Respiratory Status: Normal, Stable Level of Consciousness/Mental Status: Can Participate in Eval Pain Control: Adequate, Prn Tx Ordered Nausea/Vomiting Control: Adequate, Prn Tx Ordered Complications Possibly Related to Anesthesia: None Noted
[2018-03-21] MEDS ORDERED: HYDROCODONE/APAP 5/325 TAB ONE (11:04)
[2018-03-21 11:17] VITALS: BP 136/72
--- NOTE | 2018-03-21 15:23 | GOP ---
DATE OF OPERATION: 03/21/2018 SURGEON: Charan Khalil MD PREOPERATIVE DIAGNOSIS: Pancreatic cancer. POSTOPERATIVE DIAGNOSIS: Pancreatic cancer. PROCEDURE PERFORMED: Left subclavian port placement with fluoroscopic guidance. FINDINGS: The patient had good position and flow of the port. DESCRIPTION OF PROCEDURE: The patient was taken to the Operating Room where she received satisfactor y general laryngeal mask anesthesia by Dr. Goldsmith, placed in supine position, prepped and draped in ua sterile fashion. She was then placed in Trendelenburg. A single stick was made in the left subc lavian vein. Guidewire was introduced, position was confirmed with fluoroscopy. A subcu pocket was made in the 2nd intercostal space, port tubing was passed from that pocket to the subclavian insertio n site and trimmed to the appropriate length using fluoroscopic guidance. The port was secured to th e fascia with 3-0 Vicryl. The catheter was flushed with heparinized saline and good back flow. The port pocket was closed with 3-0 Vicryl for the subcu, 4-0 Prolene subcuticular stitch for the skin an d a Prolene mattress suture for the entrance site. Wound was dressed. She tolerated the procedure w ell, was taken to recovery room in good condition. COMPLICATIONS: None. /[id number]/MODL
== END 2018-03-21 12:02 | disposition home or self-care (01) ==
LOC: FSGY 07:53
PROVIDERS: ATTEND Surgery
PROC: 03H433Z Insertion of Infusion Device into Left Subclavian Artery, Percutaneous Approach (ICD-10-PCS; principal; 2018-03-21 10:15)
PROC: B312YZZ Fluoroscopy of Left Subclavian Artery using Other Contrast (ICD-10-PCS; principal; 2018-03-21 10:15)
PROC: 0JH60XZ Insertion of Tunneled Vascular Access Device into Chest Subcutaneous Tissue and Fascia, Open Approach (ICD-10-PCS; principal; 2018-03-21 10:15)
DX: C25.2 Malignant neoplasm of tail of pancreas (principal); C78.00 Secondary malignant neoplasm of unspecified lung; I25.10 Atherosclerotic heart disease of native coronary artery without angina pectoris; K21.9 Gastro-esophageal reflux disease without esophagitis; K44.9 Diaphragmatic hernia without obstruction or gangrene; E03.9 Hypothyroidism, unspecified; L90.0 Lichen sclerosus et atrophicus; M85.89 Other specified disorders of bone density and structure, multiple sites; L80 Vitiligo; G47.00 Insomnia, unspecified; F41.9 Anxiety disorder, unspecified; Z85.3 Personal history of malignant neoplasm of breast; Z87.442 Personal history of urinary calculi; Z86.010 Personal history of colon polyps; Z80.0 Family history of malignant neoplasm of digestive organs
CPT/HCPCS: C1788; J0690; J1100; J1642; J2370; J2405; J2704

== ENCOUNTER 2018-07-23 11:57 | Inpatient (IN) | payer OTHER, MEDICARE ==
[2018-07-23] MEDS ORDERED: NS 1,000 ML IV SCH (12:00)
[2018-07-23] MEDS ORDERED: FLUMAZENIL 0.5 MG/5 ML MDV IVP PRN (12:00)
[2018-07-23] MEDS ORDERED: NALOXONE HCL 0.4 MG/ML INJ IVP PRN (12:00)
[2018-07-23] MEDS ORDERED: MIDAZOLAM 2 MG/2 ML VIAL IVP PRN (12:00)
[2018-07-23] MEDS ORDERED: fentaNYL 100 MCG/2 ML INJ IVP PRN (12:00)
[2018-07-23] MEDS ORDERED: FUROSEMIDE 20 MG/2 ML VIAL IV ONE (12:15)
[2018-07-23 13:14] LABS: INR 1.01 (0.83-1.16); PROTIME(PATIENT) 12.9 SEC (12.0-15.0)
[2018-07-23] MEDS ORDERED: IOPAMIDOL (ISOVUE-300) 100 ML BTL ONE ×2 (13:45→16:12)
[2018-07-23] MEDS ORDERED: MIDAZOLAM 2 MG/2 ML VIAL ONE (15:20)
[2018-07-23] MEDS ORDERED: fentaNYL 100 MCG/2 ML INJ ONE (15:20)
--- NOTE | 2018-07-23 16:09 | PDRADPRE ---
Radiology History & Physical Indication for procedure: other (renal calculus) Home medications: Acetamn/Diphenhydramine 500/25 [Tylenol PM (*)] 1 each PO HS 07/03/18 [Last Taken Unknown] Amitriptyline HCl [Elavil 50 mg (*)] 50 mg PO HS 07/03/18 [Last Taken Unknown] Ibuprofen [Motrin (*)] 200 mg PO DAILY PRN 07/03/18 [Last Taken Unknown] Levothyroxine [Synthroid 100 mcg (*)] 100 mcg PO DAILY06 07/03/18 [Last Taken Unknown] Liothyronine Sodium [Cytomel 5 mcg (*)] 5 mcg PO DAILY 07/03/18 [Last Taken Unknown] Omeprazole 20 mg PO DAILY 07/03/18 [Last Taken Unknown] Potassium Cl [Klor-Con 20 meq (*)] 20 meq PO DAILY 07/03/18 [Last Taken Unknown] Prochlorperazine Maleate [Compazine 10mg (*)] 10 mg PO TID PRN 07/03/18 [Last Taken Unknown] Calcium Citrate 500 mg PO DAILY 07/18/18 [Last Taken Unknown] Allergies/Adverse Reactions: No Known Allergies Allergy (Verified 09/16/17 17:21) Mental status: A&Ox3
--- NOTE | 2018-07-23 16:09 | PDPROPOC ---
Sedation Plan of Care ASA Classification: ASA 3 Mallampati Score: Class 2 Mallampati Reference Image:
[2018-07-23] MEDS ORDERED: ONDANSETRON 4 MG/2 ML VIAL IVP PRN (16:10)
--- NOTE | 2018-07-23 16:10 | PDRADPN ---
Radiology Procedure Note Date of Procedure: 07/23/18 Radiologist: Wolf Hale Anesthesia: IV Sedation Pre-op Diagnosis: calculus of kidney Post-op Diagnosis: same Procedure: right nephroureteral access Inf/Abcess present in the surg proc area at time of surgery?: No
[2018-07-23] MEDS ORDERED: ACETAMINOPHEN 325 MG TAB ONE (17:08)
[2018-07-23] MEDS: ACETAMINOPHEN 325 MG TAB PO PRN (17:10)
--- NOTE | 2018-07-23 18:03 | GHP ---
[f rep st] PREOP HISTORY AND PHYSICAL ADMISSION DIAGNOSIS: Right nephrolithiasis and proximal ureterolithiasis. HISTORY OF PRESENT ILLNESS: This is a 77-year-old lady who has had symptomatic stone disease which o ccurred originally in October 2016. She was treated with ureteroscopy and most recently she has had a P ET-CT scan that shows a proximal right 15 mm stone with a 10 mm right mid-pole stone and obstruction. She is presently admitted for percutaneous nephrostolithotomy. MEDICATIONS: In the past has been Creon, Zantac, potassium, levothyroxine, hydrochlorothiazide. PAST SURGICAL HISTORY: Breast surgery, cholecystectomy, ureteroscopy, Whipple procedure. PAST MEDICAL HISTORY: Hematuria, breast cancer, GERD, herpes, kidney stones, pancreatic cancer and u reterolithiasis. ALLERGIES: No known drug allergies. FAMILY HISTORY: History of stomach cancer and rectal cancer. SOCIAL HISTORY: Nondrinker, nonsmoker. REVIEW OF SYSTEMS: Negative cardiac, GI. Has a history of the malignancy as noted. ENDOCRINE: Has t he hypothyroidism. PHYSICAL EXAMINATION: VITAL SIGNS: In the office is blood pressure 124/72, respirations 16, heart ra te 82. Vital signs stable as noted. CHEST: Clear. HEART: Regular rate and rhythm. ABDOMEN: Normal . No organomegaly, rebound or guarding. EXTREMITIES: Lower extremities are normal at the present melody e. She is admitted for a right-sided percutaneous nephrostolithotomy. Indications, complications, options and risks have been discussed. Written and verbal consent have yanni schulte obtained. /[id number]/MODL
[2018-07-23] MEDS ORDERED: HYDROmorphONE/DILAUDID 2 MG/ML INJ IVP PRN (18:54)
[2018-07-23] MEDS ORDERED: oxyCODONE IR 5 MG TAB PO PRN (18:57)
[2018-07-23] MEDS: HYDROmorphONE/DILAUDID 1 MG/ML INJ IVP PRN (19:02)
--- NOTE | 2018-07-23 23:29 | PDGENHP ---
History and Physical - Chief Complaint Right nephrolithiasis - History of Present Illness Patient is a 77-year-old female with past medical history of stage IV pancreatic cancer currently on chemotherapy, previous obstructing kidney stones who was admitted for a right percutaneous nephrostomy tube with lithotomy secondary to obstructing right nephrolithiasis. A recent PET-CT scan showed a 15 mm obstructing stone in her right kidney. She has been having some pain related to this. Today she had a placement of a right percutaneous nephrostomy tube with plan for lithotripsy in the morning. She currently says she is comfortable, pain is well controlled on current medications. She has no nausea vomiting or fevers. History Information - Allergies/Home Medication List Allergies/Adverse Reactions: No Known Allergies Allergy (Verified 09/16/17 17:21) Home Medications: Acetamn/Diphenhydramine 500/25 [Tylenol PM (*)] 1 each PO HS 07/03/18 [Last Taken Unknown] Amitriptyline HCl [Elavil 50 mg (*)] 50 mg PO HS 07/03/18 [Last Taken Unknown] Ibuprofen [Motrin (*)] 200 mg PO DAILY PRN 07/03/18 [Last Taken Unknown] Levothyroxine [Synthroid 100 mcg (*)] 100 mcg PO DAILY06 07/03/18 [Last Taken Unknown] Liothyronine Sodium [Cytomel 5 mcg (*)] 5 mcg PO DAILY 07/03/18 [Last Taken Unknown] Omeprazole 20 mg PO DAILY 07/03/18 [Last Taken Unknown] Potassium Cl [Klor-Con 20 meq (*)] 20 meq PO DAILY 07/03/18 [Last Taken Unknown] Prochlorperazine Maleate [Compazine 10mg (*)] 10 mg PO TID PRN 07/03/18 [Last Taken Unknown] Calcium Citrate 500 mg PO DAILY 07/18/18 [Last Taken Unknown] I have personally reviewed and updated: family history, medical history, social history, surgical history - Past Medical History cancer Additional medical history: Stage IV metastatic pancreatic cancer on chemo, GERD , history of nephrolithiasis - Surgical History Additional surgical history: Whipple, history of lithotripsy in 2017 - Family History Positive for: non-pertinent - Social History Smoking Status: Never smoked Review of Systems Review of Systems: ROS: 10pt was reviewed & negative except for what was stated in HPI & below Physical Exam Physical Exam: Temp Pulse Resp BP Pulse Ox 36.9 C 74 16 96/51 L 98 07/23/18 23:05 07/23/18 23:05 07/23/18 23:05 07/23/18 23:05 07/23/18 23:05 O2 (L/minute) 2.5 Constitutional: no apparent distress, appears nourished, not in pain Eyes: PERRL, anicteric sclera, EOMI Ears, Nose, Mouth, Throat: moist mucous membranes, hearing normal, ears appear normal, no oral mucosal ulcers Cardiovascular: regular rate and rhythym, no murmur, rub, or gallop, No edema Respiratory: no respiratory distress, no rales or rhonchi, clear to auscultation Gastrointestinal: normoactive bowel sounds, soft, non-tender abdomen, no palpable masses Genitourinary: other (Right percutaneous nephrostomy tube in place. Appears to be draining) Skin: warm, normal color, no rashes or abrasions, no fluctuance, no induration, No mottled Musculoskeletal: full muscle strength, no muscle tenderness, normal joint ROM, no joint effusions Neurologic: AAOx3 Psychiatric: interacting appropriately, not anxious, not encephalopathic, thought process linear Lymph, Heme, Immunologic: no cervical LAD, no supraclavicular LAD Lab Data & Imaging Review PT 12.9 SEC (12.0-15.0) 07/23/18 12:30 INR 1.01 (0.83-1.16) 07/23/18 12:30 APTT 32.7 SEC (23.0-38.0) 07/23/18 12:30 Assessment & Plan Assessment: 77-year-old female with past medical history of pancreatic cancer, history of nephrolithiasis here for percutaneous nephrostomy tube with lithotripsy. Right nephrolithiasis- recent CT scan showing a 15 mm stone with 10 mm right midpole stone and obstruction. Right percutaneous nephrostomy tube placed today with plan for lithotripsy in the morning. No evidence of infection. -pain control -IV fluids -Urology to perform lithotripsy in the morning Stage IV metastatic pancreatic cancer- follows Dr. Babrour. Currently undergoing FOLFIRINOX chemotherapy regimen. CA 19 9 around 250 Gastric reflux- takes Protonix for this. PPI ordered Prophylaxis- SCDs Fluids- NS Electrolytes- ordered for the morning Nutrition- NPO at midnight Dispo- inpatient for nephrostomy tubes and lithotripsy
[2018-07-24] MEDS: ACETAMINOPHEN 325 MG TAB PO PRN ×2 (01:38→14:04)
[2018-07-24 05:45] LABS: PLATELET COUNT 149 10^3/uL (150-400)
[2018-07-24] MEDS ORDERED: IOPAMIDOL (ISOVUE-300) 100 ML BTL ONE (07:35)
[2018-07-24] MEDS ORDERED: MINERAL OIL 10 ML VIAL ONE (07:35)
[2018-07-24] MEDS ORDERED: MIDAZOLAM 2 MG/2 ML VIAL IVP ONE (07:38)
--- NOTE | 2018-07-24 07:38 | PDANEPAE ---
ANE History of Present Illness 77 yo for pnl ANE Past Medical History - Cardiovascular History Hx Hypertension: No Hx Arrhythmias: No Hx Chest Pain: No Hx Coronary Artery / Peripheral Vascular Disease: No Hx CHF / Valvular Disease: No Hx Palpitations: No Cardiovascular History Comment: HAS HAD WORKUPS IN PAST FOR CHEST PAIN - NONE RECENT - Pulmonary History Hx COPD: No Hx Asthma/Reactive Airway Disease: No Hx Recent Upper Respiratory Infection: No Hx Oxygen in Use at Home: No Hx Sleep Apnea: No Pulmonary History Comment: LUNGS METS - Neurologic History Hx Cerebrovascular Accident: No Hx Seizures: No Hx Dementia: No - Endocrine History Hx Diabetes: Yes Endocrine History Comment: HYPOTHYROID - HASHIMOTOS - Renal History Hx Renal Disorders: No - Liver History Hx Hepatic Disorders: Yes Hepatic History Comment: CHOLECYSTECTOMY - Neurological & Psychiatric Hx Hx Neurological and Psychiatric Disorders: No - Cancer History Hx Cancer: Yes Cancer History Comment: BREAST CA. SKIN. PANCREATIC. LUNG - Congenital Disorder History Hx Congenital Disorders: No - GI History Hx Gastrointestinal Disorders: Yes Gastrointestinal History Comment: INTERMITTENT GERD. CONSTIPATION - Other Health History Other Health History: VITILIGO. CONGENITAL DEAFNESS. MINOR NEUROPATHY - Chronic Pain History Chronic Pain: Yes (CHEST DOWN TO ABD, uses CBD oil) - Surgical History Prior Surgeries: LASER REMVL LT KIDNEY STONE 10/2016. CHOLECYSTECTOMY. LUMPECTOMY NADINE. INCOMP CERVIX. WHIPPLE 10/2014. ENDOCRINE TUMOR 2015 ANE Review of Systems Review of Systems: - Exercise capacity METS (RN): 4 METS ANE Patient History - Allergies Allergies/Adverse Reactions: No Known Allergies Allergy (Verified 09/16/17 17:21) - Home Medications Home medications: home medication list seen and reviewed Home Medications: Acetamn/Diphenhydramine 500/25 [Tylenol PM (*)] 1 each PO HS 07/03/18 [Last Taken Unknown] Amitriptyline HCl [Elavil 50 mg (*)] 50 mg PO HS 07/03/18 [Last Taken Unknown] Ibuprofen [Motrin (*)] 200 mg PO DAILY PRN 07/03/18 [Last Taken Unknown] Levothyroxine [Synthroid 100 mcg (*)] 100 mcg PO DAILY06 07/03/18 [Last Taken Unknown] Liothyronine Sodium [Cytomel 5 mcg (*)] 5 mcg PO DAILY 07/03/18 [Last Taken Unknown] Omeprazole 20 mg PO DAILY 07/03/18 [Last Taken Unknown] Potassium Cl [Klor-Con 20 meq (*)] 20 meq PO DAILY 07/03/18 [Last Taken Unknown] Prochlorperazine Maleate [Compazine 10mg (*)] 10 mg PO TID PRN 07/03/18 [Last Taken Unknown] Calcium Citrate 500 mg PO DAILY 07/18/18 [Last Taken Unknown] - NPO status NPO Status: no food or drink >8 hours NPO Since - Liquids (Date): 07/24/18 NPO Since - Liquids (Time): 01:38 NPO Since - Solids (Date): 07/23/18 NPO Since - Solids (Time): 19:00 - Smoking Hx Smoking Status: Never smoked - Family Anes Hx Family Hx Anesthesia Complications: NEG ANE Labs/Vital Signs - Labs Result Diagrams: 07/24/18 05:35 07/24/18 05:35 - Vital Signs Blood Pressure: 97/51 Heart Rate: 64 Respiratory Rate: 16 O2 Sat (%): 99 Height: 5 ft 3 in Weight: 50.802 kg ANE Physical Exam - Airway Neck exam: FROM Mallampati Score: Class 2 Mouth exam: normal dental/mouth exam - Pulmonary Pulmonary: no respiratory distress - Cardiovascular Cardiovascular: regular rate and rhythym - ASA Status ASA Status: II ANE Anesthesia Plan Anesthesia Plan: general endotracheal anesthesia
[2018-07-24] MEDS ORDERED: fentaNYL 100 MCG/2 ML INJ ONE ×2 (07:44→10:19)
[2018-07-24] MEDS ORDERED: PROPOFOL/EMULSION 500 MG/50 ML BOTTLE IV ONE (07:44)
[2018-07-24] MEDS ORDERED: CEFAZOLIN 2 GM/DEXTROSE/100 ML BAG IV ONE (07:52)
[2018-07-24] MEDS ORDERED: ONDANSETRON 4 MG/2 ML VIAL ONE (10:39)
[2018-07-24] MEDS ORDERED: ROCURONIUM 50 MG/5 ML VIAL ONE (10:39)
--- NOTE | 2018-07-24 11:06 | GOP ---
[f rep st] OPERATIVE REPORT DATE OF OPERATION: 07/24/2018 SURGEON: Maciel Sanchez MD ANESTHESIOLOGIST: Marian Amaro MD. PREOPERATIVE DIAGNOSIS: Nephrolithiasis, ureteropelvic junction lithiasis, and abnormal renal collecting system drainage unit. POSTOPERATIVE DIAGNOSIS: right nephrolithiasis PROCEDURE PERFORMED: PCN FINDINGS: complex anatomy , Staghorn stones DESCRIPTION OF PROCEDURE: Lady after undergoing general anesthesia, being prepped and draped in normal sterile fashion, Dr. Walters had dilated the tract, and I was able to go in and she had several small stones that were extracted and then eventually trying to find the guidewire and take the guidewire into the stone near the ureteropelvic junction, it was a distinct right angle from the insertion site. She had no significant volume of renal pelvis and somewhat complicated narrowed infundibulum from the position of our access. I could not use the rigid scope to go to the large ureteropelvic junction stone, so at that point, I used a flexible cystoscope and could negotiate and get to that point, and then used the holmium laser fiber and with the holmium laser, a 550 micron fiber, at 10 pulses per second, 10 bower, I tried to fragment the stone in multiple pieces using 6500 joules. At the end of the procedure, the stone had fragmented, but there was a large piece and I could not extract it, did not have enough room where I could actually negotiate with a flexible scope to identify the stone and the laser tip and fragment the stone in smaller pieces. After significant time trying to negotiate the angle and approach stone, I elected to terminate the procedure and have a nephrostomy with ureteral stent placed. Will do exams tomorrow and then at that point, may internalize ureteral stent and then consider lithotripsy or ureteroscopy at a later time. We did have several small fragments that we sent for analysis and I would probably say 70% of the stone had been fragmented, but still a significant portion. When I tried to grasp and pull it into that dilated infundibulum, our access was not possible to do that because of the narrowed infundibulum. So a nephrostomy tube and ureteral stent was done by Dr. Walters. She will be admitted postoperatively for followup and then tomorrow do appropriate imaging test for further decision making. INTERVENTIONAL RADIOLOGIST: Swathi Walters MD /[id number]/MODL MTDD
--- NOTE | 2018-07-24 11:21 | POSTOPPROG ---
Post Op Note Date of Operation: 07/24/18 (dictated--completed) Surgeon: Maciel Sanchez Anesthesiologist: Qamar Anesthesia: GET(General Endotracheal) Pre-op Diagnosis: rt stone Procedure: PCN Inf/Abcess present in the surg proc area at time of surgery?: No EBL: 50-100 Specimen(s): stone
--- NOTE | 2018-07-24 11:26 | PDMN ---
Medical Necessity Medical necessity: Pt meets IP criteria per & DIANN S-[id number]; est los >2 mn s/p R percutaneous nephrostomy tube placement; admit for percutaneous nephrostolithotomy, IVFs & pain management; comorbid advanced age, pancreatic cancer on chemo & ureterolithiasis; per H&P & order 07/24/18
[2018-07-24] MEDS ORDERED: ONDANSETRON 4 MG/2 ML VIAL IVP PRN (12:22)
[2018-07-24] MEDS ORDERED: NALOXONE HCL 0.4 MG/ML INJ IVP PRN (12:22)
[2018-07-24] MEDS ORDERED: fentaNYL 100 MCG/2 ML INJ IVP PRN (12:22)
--- NOTE | 2018-07-24 13:34 | ASMTCMCOM ---
CM Note CM Note Notes: Pt is a 77 yo F underwent surgery to remove kidney stone. No therapies are ordered at this time, CM to follow. Plan: TBD Date Signed: 07/24/2018 01:33 PM Electronically Signed By:LUTHER Espinosa
--- NOTE | 2018-07-24 14:24 | HOSPPROG ---
Hospitalist Progress Note Assessment/Plan: 77-year-old female with past medical history of pancreatic cancer, history of nephrolithiasis here for percutaneous nephrostomy tube with lithotripsy. Right nephrolithiasis- recent PET-CT scan showing a 15 mm stone with 10 mm right midpole stone and obstruction. Right percutaneous nephrostomy tube placed on 07/23 with plan for lithotripsy this morning. No evidence of infection. -pain control -IV fluids -S/p attempted lithotripsy with ~70% of stone removed, Dr. Sanchez to f/u with additional imaging in order to decide on next step for intervention Stage IV metastatic pancreatic cancer- follows Dr. Barbour. Currently undergoing FOLFIRINOX chemotherapy regimen. CA 19 9 around 250 Gastric reflux- takes Protonix for this. PPI ordered Hypothyroidism - Restart home med pending med rec Prophylaxis- SCDs Fluids- NS Nutrition- NPO at midnight Dispo- Pending clinical course Subjective: Pt reports dry mouth this afternoon Objective: Vital Signs Temp Pulse Resp BP Pulse Ox 37.4 C 110 H 16 121/85 H 92 07/24/18 14:01 07/24/18 14:01 07/24/18 14:01 07/24/18 14:01 07/24/18 14:01 Laboratory Results 07/24/18 05:35 07/24/18 05:35 07/23/18 07/24/18 07/25/18 05:59 05:59 05:59 Intake Total 1883 1850 Output Total 1475 475 Balance 408 1375 PT 12.9 SEC (12.0-15.0) 07/23/18 12:30 INR 1.01 (0.83-1.16) 07/23/18 12:30 - Physical Exam Constitutional: chronically ill appearing Eyes: PERRL Cardiovascular: regular rate and rhythym Respiratory: no respiratory distress Gastrointestinal: soft, non-tender abdomen Skin: warm Musculoskeletal: full muscle strength Neurologic: AAOx3 Psychiatric: interacting appropriately ICD10 Worksheet Patient Problems: Problems Problem Status Onset Hydronephrosis concurrent with and due to ureteral stricture Acute Renal colic on left side Acute Right nephrolithiasis Acute Ureterolithiasis Acute
[2018-07-24] MEDS ORDERED: PROCHLORPERAZINE MALEATE 10 MG TAB PO PRN (14:41)
[2018-07-24] MEDS ORDERED: IBUPROFEN 200 MG TAB PO PRN (14:41)
[2018-07-24] MEDS: HYDROmorphONE/DILAUDID 1 MG/ML INJ IVP PRN (15:14)
[2018-07-24] MEDS ORDERED: HYDROmorphONE/DILAUDID 2 MG TAB PO PRN (17:08)
[2018-07-24] MEDS: MBX SOLN 30 ML BOTTLE PO PRN (18:20)
[2018-07-24] MEDS ORDERED: AMITRIPTYLINE HCL 50 MG TAB PO SCH (21:00)
[2018-07-24] MEDS ORDERED: ACETAMN/DIPHENHYDRAMINE 500/25MG TAB PO SCH (21:00)
[2018-07-24] MEDS ORDERED: HYDROCODONE/APAP 5/325 TAB PO PRN (21:56)
[2018-07-25] MEDS ORDERED: LEVOTHYROXINE 100 MCG TAB PO SCH (06:00)
[2018-07-25 06:41] LABS: PLATELET COUNT 130 10^3/uL (150-400)
[2018-07-25] MEDS: MBX SOLN 30 ML BOTTLE PO PRN (08:54)
[2018-07-25] MEDS ORDERED: CALCIUM CITRATE 500 MG PO SCH (09:00)
[2018-07-25] MEDS ORDERED: LIOTHYRONINE SODIUM 5 MCG TAB PO SCH (09:00)
[2018-07-25] MEDS ORDERED: PANTOPRAZOLE SODIUM 40 MG TAB PO SCH (09:00)
[2018-07-25] MEDS ORDERED: NYSTATIN SUSP 500000 UNIT/5 ML UD LIQ PO PRN (11:14)
[2018-07-25] MEDS ORDERED: FLUMAZENIL 0.5 MG/5 ML MDV IVP ONE (11:26)
[2018-07-25] MEDS ORDERED: fentaNYL 100 MCG/2 ML INJ ONE (11:26)
[2018-07-25] MEDS ORDERED: MIDAZOLAM 2 MG/2 ML VIAL ONE (11:26)
[2018-07-25] MEDS ORDERED: NALOXONE HCL 0.4 MG/ML INJ ONE (11:26)
[2018-07-25] MEDS ORDERED: NALOXONE HCL 0.4 MG/ML INJ IVP PRN (11:36)
[2018-07-25] MEDS ORDERED: fentaNYL 100 MCG/2 ML INJ IVP PRN (11:36)
[2018-07-25] MEDS ORDERED: FLUMAZENIL 0.5 MG/5 ML MDV IVP PRN (11:36)
[2018-07-25] MEDS ORDERED: MIDAZOLAM 2 MG/2 ML VIAL IVP PRN (11:36)
[2018-07-25] MEDS ORDERED: NS 1,000 ML IV SCH (11:45)
--- NOTE | 2018-07-25 11:54 | PDRADPN ---
Radiology Procedure Note Date of Procedure: 07/25/18 Radiologist: Wolf Hale Anesthesia: IV Sedation Pre-op Diagnosis: ureteral stone Post-op Diagnosis: same Procedure: JJ stent placement Inf/Abcess present in the surg proc area at time of surgery?: No
[2018-07-25] MEDS ORDERED: IOPAMIDOL (ISOVUE-300) 100 ML BTL ONE (13:03)
[2018-07-25 15:41] VITALS: BP 99/64
--- NOTE | 2018-07-25 15:44 | SOAPPROG ---
SOAP Progress Note Assessment/Plan: Assessment: Right nephrolithiasis Acute POD 1 Plan: dc home, KUB saturday , consider ESWL for residual stones 07/25/18 15:43 Subjective: ok Objective: Vital Signs Temp Pulse Resp BP Pulse Ox 36.8 C 89 18 99/64 L 95 07/25/18 15:38 07/25/18 15:38 07/25/18 15:38 07/25/18 15:38 07/25/18 15:38 Laboratory Results 07/25/18 06:30 07/25/18 06:30 07/24/18 07/25/18 07/26/18 05:59 05:59 05:59 Intake Total 1883 2820 575 Output Total 1475 2450 775 Balance 408 370 -200 PT 12.9 SEC (12.0-15.0) 07/23/18 12:30 INR 1.01 (0.83-1.16) 07/23/18 12:30 Physical Exam - Physical Exam General Appearance: alert Neck: supple Respiratory: No respiratory distress Cardiac/Chest: regular rate, rhythm Abdomen: soft Skin: normal color, warm/dry Neuro/Psych: alert, oriented x 3 ICD10 Worksheet Patient Problems: Problems Problem Status Onset Hydronephrosis concurrent with and due to ureteral stricture Acute Renal colic on left side Acute Right nephrolithiasis Acute Ureterolithiasis Acute
--- NOTE | 2018-07-25 16:01 | ASDISCHSUM ---
Discharge Information Plan Status:Home with No Needs Medically Cleared to Leave: Discharge Date: CM D/C Disposition: ADT D/C Disposition:Home, Routine, Self-Care Projected Discharge Date: Transportation at D/C: Discharge Delay Reason: Follow-Up Date: Discharge Slot: Final Diagnosis: Placement Information Patient Contact Information Contact Name:LOCO Relationship: Address:[address] [place] [address] City:[place] Alternate Phone: State/Zip Code:[place] [address] Email: Financial Information Financial Class:Medicare Primary Plan Desc:MEDICARE INPATIENT Primary Plan Number:[id number] Secondary Plan Desc:KRUNALP/MDR SUPPLEMENT Secondary Plan Number:[id number] Assessment Information LACE LACE Length of stay for Answers: 1 day current admission Acuity / Level of Answers: Yes Care: Did the patient have an inpatient admission? Comorbidities - select Answers: Any tumor (including all that apply lymphoma or leukemia) Diabetes (uncontrolled or controlled) Opioid dependence / Chronic pain Other Notes: Hypothyroid # of Emergency department Answers: 0 visits in the last 6 months Score: 12 Date Signed: 07/25/2018 04:00 PM Electronically Signed By:LUTHER Espinosa [facility] CM Progress Note CM Note CM Note Notes: Pt is a 77 yo F underwent surgery to remove kidney stone. No therapies are ordered at this time, CM to follow. Plan: TBD Date Signed: 07/24/2018 01:33 PM Electronically Signed By:LUTHER Espinosa Case Management Discharge Plan Note Case Management Discharge Discharge Order Complete? Answers: Yes Patient to Obtain Answers: via Family Medications Transportation Arranged Answers: Family/Friends Family Notified Answers: Yes Discharge Comments Notes: CM spoke with pt and her . They are being discharged independently and will follow-up with urology next week and already have appts scheduled. No other concerns noted at this time. Family to transport and help obtain medications. Date Signed: 07/25/2018 03:59 PM Electronically Signed By:LUTHER Espinosa Intervention Information Intervention Type:No Admission Order Date of Service:07/24/2018 10:57 AM Patient Type:Inpatient Staff Member:BRADY Wilkinson Courtney Hours: Discipline: Severity: Comment:
--- NOTE | 2018-07-25 17:12 | PDDCSUM ---
Discharge Summary Discharge Summary: Date of Admission: 07/23/2018 Date of Discharge: 07/25/2018 Consults: Urology Procedures: PCN placement, JJ stent placement Followup: Urology Hospital Course Problem List: 77-year-old female with past medical history of pancreatic cancer, history of nephrolithiasis here for percutaneous nephrostomy tube with lithotripsy. Right nephrolithiasis- recent PET-CT scan showing a 15 mm stone with 10 mm right midpole stone and obstruction. Right percutaneous nephrostomy tube placed on 07/23 with plan for lithotripsy this morning. No evidence of infection. -S/p attempted lithotripsy with ~70% of stone removed, then JJ stent placed, per Dr. Sanchez patient to f/u next week with KIB and will consdier ESWL for residual stones Stage IV metastatic pancreatic cancer- follows Dr. Barbour. Currently undergoing FOLFIRINOX chemotherapy regimen. CA 19 9 around 250 Gastric reflux- takes Protonix for this. PPI Hypothyroidism - Continue home medications Time spent on discharge was >35 minutes with >50% of time spent on patient education and counseling.
[2018-07-26] MEDS ORDERED: POTASSIUM CL 20 MEQ TAB PO SCH (09:00)
[2018-07-26] MEDS ORDERED: CALCIUM CARBONATE 500 MG TAB PO SCH (09:00)
== END 2018-07-25 16:42 | disposition home or self-care (01) | DRG 660 ==
LOC: FIMAGING 11:57 → F1N 17:42
PROVIDERS: ADMIT Specialist; ATTEND Specialist
PROC: 0TH53YZ Insertion of Other Device into Kidney, Percutaneous Approach (ICD-10-PCS; 2018-07-23)
PROC: 0T133JD Bypass Right Kidney Pelvis to Cutaneous with Synthetic Substitute, Percutaneous Approach (ICD-10-PCS; principal; 2018-07-24 07:45)
PROC: 0TC04ZZ Extirpation of Matter from Right Kidney, Percutaneous Endoscopic Approach (ICD-10-PCS; principal; 2018-07-24 07:45)
PROC: 0T764DZ Dilation of Right Ureter with Intraluminal Device, Percutaneous Endoscopic Approach (ICD-10-PCS; principal; 2018-07-24 07:45)
PROC: 0T763DZ Dilation of Right Ureter with Intraluminal Device, Percutaneous Approach (ICD-10-PCS; 2018-07-25)
DX: N20.0 Calculus of kidney (principal); C25.9 Malignant neoplasm of pancreas, unspecified; C78.00 Secondary malignant neoplasm of unspecified lung; K21.9 Gastro-esophageal reflux disease without esophagitis; E03.9 Hypothyroidism, unspecified; Z85.3 Personal history of malignant neoplasm of breast; Z80.0 Family history of malignant neoplasm of digestive organs; B00.9 Herpesviral infection, unspecified
CPT/HCPCS: 82365-90; C1725; C1729; C1769; C1894; J0690; J0696; J1170; J1642; J1940; J2250; J2310; J2405; J2704; J3010; Q9967

== ENCOUNTER → 2018-07-28 | Outpatient (CLI) | payer OTHER, MEDICARE | LOC: FIMAGING 12:28 | PROVIDERS: ATTEND Specialist | DX: N20.0 Calculus of kidney (principal); Z96.0 Presence of urogenital implants ==

== ENCOUNTER 2018-08-05 09:59 | Outpatient (CLI) | payer OTHER, MEDICARE ==
[2018-08-05] MEDS ORDERED: diphenhydrAMINE 25 MG CAP PO ONE ×2 (10:45→11:00)
[2018-08-05] MEDS ORDERED: ACETAMINOPHEN 325 MG TAB ONE (10:46)
[2018-08-05] MEDS ORDERED: ACETAMINOPHEN 325 MG TAB PO ONE (11:00)
== END 2018-08-05 17:00 | disposition home or self-care (01) ==
LOC: FOBOP 09:59
PROVIDERS: ATTEND Internal Medicine Hematology & Oncology
PROC: 30233N1 Transfusion of Nonautologous Red Blood Cells into Peripheral Vein, Percutaneous Approach (ICD-10-PCS; principal; 2018-08-05)
DX: C25.9 Malignant neoplasm of pancreas, unspecified (principal); D64.81 Anemia due to antineoplastic chemotherapy
CPT/HCPCS: 36430; J1642; P9016